=== PATIENT | male | born 1965 | race Caucasian/White ===

== ENCOUNTER 2021-03-11 15:49 | Observation (INO) ==
[2021-03-11] MEDS ORDERED: *HR* Heparin 5,000 UNIT/ML VIAL IVP PRN ×2 (21:08)
[2021-03-11] MEDS ORDERED: Perflutren Lipid Microsphere 1.3 ML in 0.9 % Sodium Chloride 8.7 ML IVP PRN (21:11)
[2021-03-11] MEDS ORDERED: *HR* Metoprolol 5 MG/5 ML VIAL IVP ONE ×2 (21:42→22:46)
[2021-03-11] MEDS ORDERED: Acetaminophen 325 MG TABLET PO ONE (21:47)
[2021-03-11] MEDS: Heparin 25,000UNIT/250ML 1/2NS 25,000 UNIT/250 ML IV.SOLN IVC SCH (22:01)
[2021-03-11] MEDS: DilTIAZem 50 MG/50 ML IV.SOLN IVC SCH (22:01)
[2021-03-11 22:09] LABS: Heparin anti-factor XA UFH < 0.04 IU/mL (0.30-0.70); INR 1.1; Prothrombin Time 12.3 Seconds (9.4-12.1)
[2021-03-11] MEDS ORDERED: tiZANidine 4 MG TABLET PO PRN (22:21)
[2021-03-11] MEDS ORDERED: *HR* OxyCODONE Immed Rel 5 MG TABLET PO ONE (22:22)
[2021-03-11] MEDS: traZODone 50 MG TABLET PO SCH (22:33)
[2021-03-11] MEDS: Gabapentin 300 MG CAPSULE PO SCH (22:33)
[2021-03-11] MEDS ORDERED: Naloxone 0.4 MG/ML INJ IVP PRN (22:37)
[2021-03-11] MEDS ORDERED: Ondansetron 4 MG/2 ML VIAL IVP PRN (22:37)
[2021-03-12] MEDS ORDERED: Furosemide 20 MG/2 ML VIAL IVP ONE (00:01)
[2021-03-12] MEDS ORDERED: *HR* Metoprolol 5 MG/5 ML VIAL IVP ONE ×2 (00:22→04:56)
[2021-03-12] MEDS ORDERED: Acetaminophen 325 MG TABLET PO PRN (03:00)
[2021-03-12 04:32] LABS: Hematocrit 45.9 % (37.5-50.1); Mean Corpuscular HGB Conc 32.7 g/dL (31.6-35.5); Mean Corpuscular Hemoglobin 32.3 pg (28.0-33.3); Mean Corpuscular Volume 98.7 fL (83.0-100.0); Mean Platelet Volume 9.8 fL (9.4-12.4); Platelet Count 230 K/mcL (140-400); Red Blood Count 4.65 M/mcL (4.19-5.50); Red Cell Distribution Width 13.4 % (11.5-14.5); White Blood Count 7.5 K/mcL (4.3-11.1)
[2021-03-12 04:53] LABS: BUN/Creatinine Ratio 11 (6-26); Blood Urea Nitrogen 11 mg/dL (6-20); Calcium 8.8 mg/dL (8.6-10.3); Carbon Dioxide 26 mEq/L (23-29); Chloride 100 mEq/L (98-107); Chol/HDL Ratio 2.9 (0-4.9); Cholesterol 160 mg/dL (< 200); Glucose 96 mg/dL (70-105); HDL Cholesterol 55 mg/dL (40-59); LDL Cholesterol,Calculated 81 mg/dL (< 100); Magnesium 1.7 mg/dL (1.6-2.6); Osmolality,Calculated 277 (280-300); Potassium 3.6 mEq/L (3.5-5.1); Sodium 134 mEq/L (136-145); Triglycerides 118 mg/dL (< 150); eGFR For African Americans > 60 (> 60); eGFR For Non-African Americans > 60 (> 60)
[2021-03-12] MEDS: DilTIAZem 50 MG/50 ML IV.SOLN IVC SCH (05:23)
[2021-03-12] MEDS: Aspirin Enteric Coated 81 MG Tablet PO SCH (07:48)
[2021-03-12] MEDS: Gabapentin 300 MG CAPSULE PO SCH ×3 (07:48→19:51)
[2021-03-12] MEDS: lisinopriL 20 MG TABLET PO SCH (07:48)
[2021-03-12 08:42] LABS: Estimated Average Glucose 128 mg/dl; Hemoglobin A1C 6.1 %
[2021-03-12] MEDS: *HR* HYDROcodone/Acet 10/325 mg TABLET PO PRN ×3 (09:02→23:18)
[2021-03-12] MEDS: Heparin 25,000UNIT/250ML 1/2NS 25,000 UNIT/250 ML IV.SOLN IVC SCH (15:20)
[2021-03-12] MEDS: traZODone 50 MG TABLET PO SCH (19:52)
[2021-03-13 04:46] LABS: BUN/Creatinine Ratio 18 (6-26); Blood Urea Nitrogen 18 mg/dL (6-20); Calcium 8.6 mg/dL (8.6-10.3); Carbon Dioxide 25 mEq/L (23-29); Chloride 103 mEq/L (98-107); Glucose 99 mg/dL (70-105); Hematocrit 46.5 % (37.5-50.1); Hemoglobin 15.2 g/dL (12.9-16.9); Mean Corpuscular HGB Conc 32.7 g/dL (31.6-35.5); Mean Corpuscular Hemoglobin 32.1 pg (28.0-33.3); Mean Corpuscular Volume 98.1 fL (83.0-100.0); Mean Platelet Volume 10.1 fL (9.4-12.4); Osmolality,Calculated 280 (280-300); Platelet Count 216 K/mcL (140-400); Potassium 3.8 mEq/L (3.5-5.1); Red Blood Count 4.74 M/mcL (4.19-5.50); Red Cell Distribution Width 13.2 % (11.5-14.5); Sodium 134 mEq/L (136-145); White Blood Count 7.6 K/mcL (4.3-11.1); eGFR For African Americans > 60 (> 60); eGFR For Non-African Americans > 60 (> 60)
[2021-03-13 07:19] VITALS: TEMP 98.1
[2021-03-13] MEDS ORDERED: Regadenoson 0.4 MG/5 ML SYRINGE IVP ONE (07:46)
[2021-03-13] MEDS: lisinopriL 20 MG TABLET PO SCH (07:50)
[2021-03-13] MEDS: Aspirin Enteric Coated 81 MG Tablet PO SCH (07:50)
[2021-03-13] MEDS: Gabapentin 300 MG CAPSULE PO SCH ×2 (07:50→14:46)
[2021-03-13] MEDS: *HR* HYDROcodone/Acet 10/325 mg TABLET PO PRN (07:55)
[2021-03-13] MEDS: Heparin 25,000UNIT/250ML 1/2NS 25,000 UNIT/250 ML IV.SOLN IVC SCH (09:52)
[2021-03-13] MEDS ORDERED: Apixaban 5 MG TABLET PO SCH (14:30)
[2021-03-13 15:05] VITALS: BP 150/95; PULSE 96; O2SAT 97
== END 2021-03-13 15:28 | disposition home or self-care (01) ==
LOC: 3BNU
PROVIDERS: ADMIT Student in an Organized Health Care Education/Training Program; ATTEND Student in an Organized Health Care Education/Training Program